=== PATIENT | male | born 1950 | race African-American/Black ===

== ENCOUNTER 2019-01-25 12:10 | Emergency (ER) | payer MEDICARE, MEDICAID ==
[~2019-01-25] VITALS: Ht 170.2 cm; Wt 102.0 kg
[~2019-01-25 12:10] MED LIST: ASPIRIN; DIGOXIN; DILTIAZEM; FLOMAX; LOSARTAN; METOPROLOL; NORCO; PRILOSEC
[2019-01-25 13:10] LABS: BASOPHILS % 0.8 % (0.0-2.0); EOSINOPHILS % 3.6 % (0.0-5.0); HEMATOCRIT. 46.6 % (42.0-52.0); HEMOGLOBIN. 14.9 g/dL (14.0-18.0); LYMPHOCYTES % 23.5 % (20.0-50.0); MEAN CORPUSCULAR HEMOGLOBIN 25.6 pg (28.0-32.0); MEAN CORPUSCULAR VOLUME 79.8 fL (80.0-94.0); MEAN PLATELET VOLUME 11.5 fl (7.4-10.4); NEUTROPHILS % 62.1 % (40.0-76.0); PLATELET 101 x1000/uL (130-400); RED BLOOD CELL COUNT 5.84 mill/uL (4.7-6.1); RED CELL DISTRIBUTION WIDTH 15.1 % (11.6-14.6)
[2019-01-25 13:16] LABS: CHLORIDE 106 mEq/L (98-107)
[2019-01-25 15:11] VITALS: BP 134/71
== END 2019-01-25 15:34 | disposition left against medical advice (07) ==
LOC: ER 12:10 → ENRESERV 14:25 → CANRESERV 14:25 → EDBEDREQ 14:35 → EDBEDREQTM 14:35 → CANBEDREQ 15:33 → ER 15:34
DX: R07.89 Other chest pain (principal); I10 Essential (primary) hypertension; I25.2 Old myocardial infarction; E78.00 Pure hypercholesterolemia, unspecified; F17.210 Nicotine dependence, cigarettes, uncomplicated; Z95.0 Presence of cardiac pacemaker; Z71.6 Tobacco abuse counseling
CPT/HCPCS: 36415; 71045; 83880; 84484; 93005; 99284; 99406

== ENCOUNTER 2019-04-14 14:28 | Emergency (ER) | payer MEDICARE, MEDICAID ==
[~2019-04-14] VITALS: Ht 177.8 cm; Wt 76.0 kg
[2019-04-14] MEDS ORDERED: ACETAMINOPHEN 325MG TABLET PO ONE (14:45)
[2019-04-14 15:06] LABS: HEMATOCRIT. 48.6 % (42.0-52.0); HEMOGLOBIN. 15.4 g/dL (14.0-18.0); MEAN CORPUSCULAR HEMOGLOBIN 25.4 pg (28.0-32.0); MEAN CORPUSCULAR VOLUME 79.9 fL (80.0-94.0); MEAN PLATELET VOLUME 11.8 fl (7.4-10.4); PLATELET 96 x1000/uL (130-400); RED BLOOD CELL COUNT 6.08 mill/uL (4.7-6.1); RED CELL DISTRIBUTION WIDTH 14.8 % (11.6-14.6)
[2019-04-14 15:11] LABS: CHLORIDE 104 mEq/L (98-107)
[2019-04-14 15:12] LABS: INR 1.1; PROTHROMBIN TIME 11.8 sec (9.6-11.0)
[2019-04-14 15:20] LABS: PLATELET ESTIMATE DECREASED
[2019-04-14 15:54] LABS: CLARITY URINE CLEAR (CLEAR); COLOR URINE YELLOW (YELLOW); KETONES URINE NEGATIVE (NEGATIVE); LEUKOCYTE ESTERASE URINE 2+ (NEGATIVE); NITRITE URINE POSITIVE (NEGATIVE); OCCULT BLOOD URINE 3+ (NEGATIVE); PH URINE 5.5 (4.5-8.0); PROTEIN URINE TRACE (NEGATIVE); SPECIFIC GRAVITY URINE 1.013 (1.005-1.030); UROBILINOGEN URINE 0.2 E.U./dL (0.2-1.0)
[2019-04-14 16:08] LABS: *BARBITURATES SCREEN URINE NEGATIVE (NEGATIVE); *BENZODIAZEPINES SCREEN URINE NEGATIVE (NEGATIVE); *COCAINE SCREEN URINE NEGATIVE (NEGATIVE)
[2019-04-14 16:09] LABS: *AMPHETAMINES SCREEN URINE NEGATIVE (NEGATIVE); CANNABINOID URINE SCREEN NEGATIVE (NEGATIVE); METHADONE URINE SCREEN NEGATIVE (NEGATIVE); OPIATES URINE SCREEN PRESUMTIVE POSITIVE (NEGATIVE); PHENCYCLIDINE URINE SCREEN NEGATIVE (NEGATIVE)
[2019-04-14 17:55] VITALS: BP 114/60
== END 2019-04-14 19:04 | disposition left against medical advice (07) ==
LOC: ER 14:28 → ENRESERV 20:01 → CANRESERV 20:01 → CANBEDREQ 04-15 07:40
DX: K40.90 Unilateral inguinal hernia, without obstruction or gangrene, not specified as recurrent (principal); N43.3 Hydrocele, unspecified; N39.0 Urinary tract infection, site not specified; R31.9 Hematuria, unspecified; F11.10 Opioid abuse, uncomplicated; D72.829 Elevated white blood cell count, unspecified; R80.9 Proteinuria, unspecified; R82.71 Bacteriuria; N17.0 Acute kidney failure with tubular necrosis; I49.9 Cardiac arrhythmia, unspecified; I48.91 Unspecified atrial fibrillation; E78.00 Pure hypercholesterolemia, unspecified; I10 Essential (primary) hypertension; I25.2 Old myocardial infarction; Z95.0 Presence of cardiac pacemaker; Z79.899 Other long term (current) drug therapy
CPT/HCPCS: 36415; 76870; 80305; 83605; 93976; 99284